=== PATIENT | female | born 1980 | race Two or more races ===

== ENCOUNTER 2019-02-01 19:00 | Inpatient (IN) | payer OTHER ==
[~2019-02-01] VITALS: Ht 162.6 cm; Wt 78.5 kg
[2019-02-01] MEDS ORDERED: IRON325 MG PO (19:16)
[2019-02-01] MEDS ORDERED: PRENATABS RX T1 EACH PO (19:16)
== END 2019-02-02 10:02 | disposition designated cancer center or children's hospital (05) | DRG 833 ==
LOC: EDBD 19:00 → LDR 19:00
PROVIDERS: ADMIT Obstetrics & Gynecology
PROC: 4A1HXCZ Monitoring of Products of Conception, Cardiac Rate, External Approach (ICD-10-PCS; principal; 2019-02-01)
PROC: BY4GZZZ Ultrasonography of Third Trimester, Multiple Gestation (ICD-10-PCS; 2019-02-01)
DX: O42.913 Preterm premature rupture of membranes, unspecified as to length of time between rupture and onset of labor, third trimester (principal); O30.003 Twin pregnancy, unspecified number of placenta and unspecified number of amniotic sacs, third trimester; Z88.6 Allergy status to analgesic agent; Z3A.28 28 weeks gestation of pregnancy